=== PATIENT | female | born 1990 | race Caucasian/White ===

== ENCOUNTER 2020-06-05 18:57 | Emergency (ER) | payer MEDICAID ==
[~2020-06-05] VITALS: Ht 170.2 cm; Wt 59.0 kg
[2020-06-05 19:22] VITALS: Ht 170.2 cm; Wt 59.0 kg
[2020-06-05 20:11] VITALS: BP 98/61
== END 2020-06-05 20:11 | disposition home or self-care (01) ==
LOC: ED 18:57
DX: H00.014 Hordeolum externum left upper eyelid (principal)

== ENCOUNTER 2020-08-14 22:46 | Emergency (ER) | payer MEDICAID, SELFPAY ==
[~2020-08-14] VITALS: Ht 170.2 cm; Wt 57.6 kg
[2020-08-14 22:47] VITALS: BP 103/55; Ht 170.2 cm; Wt 57.6 kg
== END 2020-08-15 00:09 | disposition home or self-care (01) ==
LOC: ED 22:46
DX: R11.2 Nausea with vomiting, unspecified (principal); R19.7 Diarrhea, unspecified; Z20.822 Contact with and (suspected) exposure to COVID-19; Z98.890 Other specified postprocedural states
CPT/HCPCS: U0003